=== PATIENT | female | born 1990 | race Caucasian/White ===

== ENCOUNTER 2017-06-02 20:01 | Emergency (ER) | payer MEDICAID ==
[~2017-06-02] VITALS: Ht 165.1 cm; Wt 128.8 kg
[2017-06-02 20:34] VITALS: Ht 165.1 cm; Wt 128.8 kg
[2017-06-03 00:41] VITALS: BP 144/82
== END 2017-06-03 00:41 | disposition home or self-care (01) ==
LOC: ED 20:01
DX: J11.1 Influenza due to unidentified influenza virus with other respiratory manifestations (principal)
CPT/HCPCS: Q0162

== ENCOUNTER 2018-10-12 09:06 | Emergency (ER) | payer MEDICAID ==
[~2018-10-12] VITALS: Ht 165.1 cm; Wt 129.3 kg
[2018-10-12 09:18] VITALS: Ht 165.1 cm; Wt 129.3 kg
[2018-10-12 09:55] LABS: CALCIUM 9.4 mg/dL (8.5-10.1); CARBON DIOXIDE 29.4 mmol/L (21-32); CHLORIDE SERUM 103 mmol/L (98-107); CREATININE SERUM 0.8 mg/dL (0.6-1.0); GFR1 > 60 mL/min; GLUCOSE SERUM 102 mg/dL (74-106); POTASSIUM SERUM 4.4 mmol/L (3.5-5.1); SODIUM SERUM 138 mmol/L (136-145)
[2018-10-12 09:59] LABS: ALBUMIN 3.6 g/dL (3.4-5.0); ALKALINE PHOSPHATASE 118 U/L (46-116); ALT/SGPT 74 U/L (14-59); AST/SGOT 32 U/L (15-37); BILIRUBIN TOTAL 0.64 mg/dL (0.20-1.00); LIPASE 90 IU/L (73-393); TOTAL PROTEIN, SERUM 8.1 g/dL (6.4-8.2)
[2018-10-12 10:11] LABS: PLATELET COUNT 318 x10^3mcL (130-400); RED CELL DISTRIBUTION WIDTH 13.6 % (11.5-14.5)
[2018-10-12 10:19] LABS: BASOPHIL % 0 % (0-2)
[2018-10-12 11:23] VITALS: BP 142/93
== END 2018-10-12 11:22 | disposition home or self-care (01) ==
LOC: ED 09:06
PROVIDERS: Emergency Medicine
DX: K52.9 Noninfective gastroenteritis and colitis, unspecified (principal); J45.909 Unspecified asthma, uncomplicated
CPT/HCPCS: 36415; J1885; Q0162